=== PATIENT | female | born 1990 | race Caucasian/White ===

== ENCOUNTER 2023-10-04 08:00 | Outpatient (RCR) | payer OTHER, SELFPAY | END 2023-12-27 08:55 | disposition home or self-care (01) | LOC: HO.PT 08:00 | PROVIDERS: PCP Family Medicine; Visit Provider Family Medicine | DX: N94.819 Vulvodynia, unspecified (principal) | CPT/HCPCS: 97110; 97112; 97140; 97162; 97530 ==